=== PATIENT | male | born 1960 | race Two or more races ===

== ENCOUNTER → 2023-10-24 | Outpatient (CLI) | payer BC, SELFPAY ==
[2023-10-28 06:08] LABS: DHEA Sulfate 27.7 ug/dL (48.9-344.2); G6PD Quant Test 238 (127-427); Red Blood Cell Count Test/G6PD 5.29 x10E6/uL (4.14-5.80)
== END | disposition home or self-care (01) ==
LOC: LABSPEC 11:11
PROVIDERS: Referring Provider Nurse Practitioner Family; Visit Provider Nurse Practitioner Family
DX: A44.0 Systemic bartonellosis (principal); A68.1 Tick-borne relapsing fever; A69.20 Lyme disease, unspecified; A79.82 Anaplasmosis [A. phagocytophilum]; R53.82 Chronic fatigue, unspecified
CPT/HCPCS: 82627; 82955; 84403; 82626